=== PATIENT | female | born 1990 | race Caucasian/White ===

== ENCOUNTER → 2016-12-04 | Outpatient (CLI) | payer BC | END | disposition short-term general hospital (02) | LOC: CLORTH 09:07 | DX: S83.004A Unspecified dislocation of right patella, initial encounter (principal); M95.8 Other specified acquired deformities of musculoskeletal system ==

== ENCOUNTER → 2017-01-01 | Outpatient (CLI) | payer BC | END | disposition short-term general hospital (02) | LOC: CLORTH 08:51 | DX: Z47.89 Encounter for other orthopedic aftercare (principal) ==

== ENCOUNTER → 2017-01-29 | Outpatient (CLI) | payer BC | END | disposition short-term general hospital (02) | LOC: CLORTH 09:19 | DX: Z47.89 Encounter for other orthopedic aftercare (principal) ==

== ENCOUNTER → 2017-03-12 | Outpatient (CLI) | payer BC | END | disposition short-term general hospital (02) | LOC: CLORTH 09:28 | DX: Z47.89 Encounter for other orthopedic aftercare (principal) ==